=== PATIENT | male | born 1995 | race Caucasian/White ===

== ENCOUNTER 2017-02-12 15:31 | Emergency (ER) | payer BC ==
[2017-02-12 15:54] VITALS: BP 130/71
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
[2017-02-12] MEDS ORDERED: cefTRIAXone VIAL(*) 250 MG VIAL IM ONE (16:50)
[2017-02-12] MEDS ORDERED: Lidocaine 1% MPF* 2 ML VIAL INJ ONE (16:55)
== END 2017-02-12 17:25 | disposition home or self-care (01) ==
LOC: UCCORT 15:31
DX: R36.1 Hematospermia (principal); N45.3 Epididymo-orchitis
CPT/HCPCS: 81003; 87086; 87491; 87591; 96372; 99212; G0463; J0696

== ENCOUNTER 2018-01-31 15:29 | Emergency (ER) | payer BC ==
[2018-01-31 17:33] VITALS: BP 127/63
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
== END 2018-01-31 19:46 | disposition home or self-care (01) ==
LOC: UCCORT 15:29
DX: S89.92XA Unspecified injury of left lower leg, initial encounter (principal); V28.4XXA Motorcycle driver injured in noncollision transport accident in traffic accident, initial encounter; Y92.410 Unspecified street and highway as the place of occurrence of the external cause; Z87.891 Personal history of nicotine dependence
CPT/HCPCS: 72050; 72070; 99213; G0463

== ENCOUNTER 2018-03-31 17:14 | Emergency (ER) | payer BC ==
[2018-03-31 17:25] VITALS: BP 118/71
--- NOTE | 2018-03-31 17:49 | UC ---
Throat Pain/Nasal Segun HPI - HPI Summary HPI Summary: Pt c/o sudden onset ST, bilateral ear pain, nasal congestion, PND and sinus pressure and pain. - History of Current Complaint Hx Obtained From: Patient Onset/Duration: Sudden Onset, Lasting Days - 4, Still Present, Worse Since - onset Severity: Moderate Pain Intensity: 2 Cough: None Associated Signs & Symptoms: Positive: Dysphagia - Epiglottits Risk Factors Epiglottis Risk Factors: Sudden Onset <Angelina John NP - Last Filed: 03/31/18 17:57> <Porfirio Santos - Last Filed: 03/31/18 18:18> - History of Current Complaint Chief Complaint: UCGeneralIllness Stated Complaint: SINUSES Time Seen by Provider: 03/31/18 17:23 - Allergies/Home Medications Allergies/Adverse Reactions: Allergies Allergy/AdvReac Type Severity Reaction Status Date / Time unknown lotion Allergy Rash Uncoded 03/31/18 17:25 PMH/Surg Hx/FS Hx/Imm Hx Previously Healthy: Yes Other History Of: Negative For: HIV, Hepatitis B, Hepatitis C, Anticoagulant Therapy - Surgical History Surgical History: Yes Surgery Procedure, Year, and Place: WISDOM TEETH REMOVED-MD OFFICE. R knee surgery - ARTHROSCOPIC - Family History Known Family History: Positive: Cardiac Disease, Hypertension - Social History Lives: With Family Alcohol Use: Weekly Alcohol Amount: few drinks a week Substance Use Type: None Smoking Status (MU): Former Smoker Type: Smokeless Tobacco Amount Used/How Often: occasional use Have You Smoked in the Last Year: Yes - chewing tobacco <Angelina John NP - Last Filed: 03/31/18 17:57> Review of Systems Constitutional: Fatigue Skin: Negative Eyes: Negative ENT: Sore Throat, Ear Ache Respiratory: Negative Cardiovascular: Negative Gastrointestinal: Negative Genitourinary: Negative Motor: Negative Neurovascular: Negative Musculoskeletal: Negative Neurological: Headache Psychological: Negative Is Patient Immunocompromised?: No All Other Systems Reviewed And Are Negative: Yes <Angelina John NP - Last Filed: 03/31/18 17:57> Physical Exam Triage Information Reviewed: Yes Appearance: Ill-Appearing Vital Signs: Initial Vital Signs Temp 98.1 F 03/31/18 17:21 Pulse 84 03/31/18 17:21 Resp 14 03/31/18 17:21 BP 118/71 03/31/18 17:21 Pulse Ox 98 03/31/18 17:21 Vital Signs Reviewed: Yes Eye Exam: Normal ENT Exam: Other ENT: Positive: Pharyngeal erythema, Tonsillar swelling, Tonsillar exudate Dental Exam: Normal Neck exam: Normal Neck: Positive: Enlarged Nodes @ - bilaterl submandibular Respiratory Exam: Normal Cardiovascular Exam: Normal Musculoskeletal Exam: Normal Neurological Exam: Normal Psychological Exam: Normal Skin Exam: Normal <Angelina John NP Last Filed: 03/31/18 17:57> Vital Signs: Initial Vital Signs Temp 98.1 F 03/31/18 17:21 Pulse 84 03/31/18 17:21 Resp 14 03/31/18 17:21 BP 118/71 03/31/18 17:21 Pulse Ox 98 03/31/18 17:21 <Porfirio Santos Last Filed: 03/31/18 18:18> Diagnostics - Laboratory Diagnostic Studies Completed/Ordered: RApid strep: negative <Angelina John NP Last Filed: 03/31/18 17:57> Throat Pain/Nasal Course/Dx - Differential Dx/Diagnosis Differential Diagnosis/HQI/PQRI: Mononucleosis, Pharyngitis, Tonsillitis Provider Diagnoses: tonsillitis <Angelina John NP Last Filed: 03/31/18 17:57> Discharge - Sign-Out/Discharge Documenting (check all that apply): Discharge/Admit/Transfer - Billing Disposition and Condition Condition: STABLE Disposition: Home <Angelina John NP Last Filed: 03/31/18 17:57> - Billing Disposition and Condition Condition: STABLE Disposition: Home <Porfirio Santos Last Filed: 03/31/18 18:18> - Discharge Plan Condition: Stable Disposition: HOME Prescriptions: Penicillin VK 500 MG TAB(NF) [Penicillin VK 500 mg Tab] 500 mg PO Q8H #30 tab Patient Education Materials: Tonsillitis (ED) Referrals: [facility] [place] [Outside] - As Soon As Possible No Primary Care Phys,NOPCP [Primary Care Provider] - Additional Instructions: Per institutional requirements, I have reviewed the chart, however, I was not consulted specifically or made aware of this patient by the above midlevel provider. I did not personally evaluate, interact with , or disposition this patient.
== END 2018-03-31 18:00 | disposition home or self-care (01) ==
LOC: UCCORT 17:14
DX: J03.90 Acute tonsillitis, unspecified (principal); F17.290 Nicotine dependence, other tobacco product, uncomplicated
CPT/HCPCS: 87651; 99212; G0463

== ENCOUNTER 2019-01-12 08:29 | Day surgery (SDC) | payer BC ==
--- NOTE | 2019-01-06 17:14 | HP ---
PREOPERATIVE HISTORY AND PHYSICAL: DATE OF ADMISSION/SURGERY: 01/12/19 ATTENDING SURGEON: Dr. Megan Hedrick.* (DICTATED BY APRIL ASHLEY) PROCEDURE: Left knee arthroscopy, partial meniscectomy. CHIEF COMPLAINT: Left knee pain. HISTORY OF PRESENT ILLNESS: Duncan is a 23-year-old male who presents to the clinic for left knee pain due to a meniscus tear. He has failed conservative measures and therefore agreed to undergo a left knee arthroscopy, partial meniscectomy with Dr. Hedrick on 01/12/19. PAST MEDICAL HISTORY: Denies current problems. PAST SURGICAL HISTORY: Right knee scope with Dr. Murray. He denies prior complications with anesthesia. MEDICATIONS: No active medications. ALLERGIES: No known drug allergies. FAMILY HISTORY: Positive for diabetes. Denies family history of DVT or PE. SOCIAL HISTORY: He lives with his family. He is an aircraft electrician. He reports occasional alcohol consumption. He denies tobacco use. He is right-hand dominant. REVIEW OF SYSTEMS: A 14-point review of systems was reviewed with the patient. Positive for current complaint, otherwise negative. Denies fever, chills, chest pain, shortness of breath, history of bleeding disorder, history of DVT or PE. PHYSICAL EXAMINATION GENERAL: A 23-year-old, well-developed, well-nourished male, in no acute distress. VITAL SIGNS: Height 72, weight 196, pulse 77, blood pressure 124/70, temperature 97.8, BMI 26.6. HEENT: Normocephalic, atraumatic. PERRLA. Throat clear. NECK: Supple. PULMONARY: Lungs are clear to auscultation bilaterally. No wheezing, rhonchi, or rales. CARDIO: Regular rate and rhythm. S1, S2. No murmurs, gallops, or rubs. No edema. ABDOMEN: Positive bowel sounds. Soft, nontender. NEURO: Alert and oriented x3. Cranial nerves grossly intact. MUSCULOSKELETAL: Left lower extremity: Skin is intact. Tenderness to palpation over the medial joint line. Range of motion 0 to 130. Stable varus and valgus stress. Stable Kassi. Negative posterior drawer. Calf soft, nontender. +2 DP pulse. Sensation intact to light touch distally. DIAGNOSTIC STUDIES: MRI of the left knee revealed posterior horn of the medial meniscus. IMPRESSION: Left knee meniscus tear. PLAN: The patient is scheduled to undergo a left knee arthroscopy, partial meniscectomy with Dr. Hedrick on 01/12/19. He will follow up 10 to 14 days postop for followup and suture removal. Percocet will be used for postop pain management. APRIL ASHLEY [id number]/[facility] #: [id number] [facility] HOSPITALAlyssa
[~2019-01-12 08:29] MED LIST: Buffered Lidocaine 1% SYRIN* 1 ML/SYRINGE INTRADERM ONE; Famotidine IV* 10 MG/ML 2 ML (20 mg) IV ONE; Lactated Ringers 1000 ML Bag* 1,000 ML IV SCH; Midazolam* 1 MG/ML 5 ML VIAL (5 MG) ONE; fentaNYL* 50 MCG/ML 2 ML VIAL (100 MCG VIAL) ONE
[2019-01-12] MEDS ORDERED: Famotidine IV* 10 MG/ML 2 ML (20 mg) ONE (08:38)
[2019-01-12] MEDS ORDERED: ceFAZolin 2 GM in NS PREMIX(*) 2 GM/100 ML BAG IVPB ONE (08:38)
[2019-01-12] MEDS ORDERED: Buffered Lidocaine 1% SYRIN* 1 ML/SYRINGE INTRADERM ONE (08:38)
[2019-01-12] MEDS ORDERED: Ropivacaine* 2 MG/ML 20 ML VIAL (0.2%) ONE (09:55)
[2019-01-12] MEDS ORDERED: Lidocaine 1% MPF wEPI 200,000* 30 ML SDV ONE (09:55)
[2019-01-12] MEDS ORDERED: Ketorolac INJ* 30 MG/ML 1 ML VIAL ONE (11:02)
[2019-01-12] MEDS ORDERED: Ondansetron INJ* 2 MG/ML VIAL ONE (11:02)
[2019-01-12] MEDS ORDERED: Propofol* 10 MG/ML 20 ML BTL ONE (11:02)
[2019-01-12] MEDS ORDERED: Dexamethasone IV* 4 MG/ML 1 ML (4 MG) ONE (11:02)
[2019-01-12] MEDS ORDERED: DiMENhydriNATE IV* 50 MG/ML VIAL IV PUSH PRN (11:04)
[2019-01-12] MEDS ORDERED: oxyCODONE TAB* 5 MG TAB PO PRN (11:04)
[2019-01-12] MEDS ORDERED: Naloxone* 0.4 MG/ML 1 ML VIAL IV PRN (11:04)
[2019-01-12] MEDS ORDERED: Acetaminophen TAB* 325 MG PO PRN (11:04)
[2019-01-12] MEDS ORDERED: oxyCODONE/Acetamin 5/325 MG* TAB ONE (12:02)
[2019-01-12 12:34] VITALS: BP 120/52
--- NOTE | 2019-01-12 14:46 | OP ---
DATE OF OPERATION: 01/12/[address] - [facility] DATE OF : 89 SURGEON: Megan Hedrick MD. 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 PRE-OP DIAGNOSIS: Left knee medial meniscus tear with synovitis. POST-OP DIAGNOSIS: Left knee medial meniscus tear with synovitis. OPERATIVE PROCEDURE: Left knee arthroscopy with partial medial and partial lateral meniscectomy and synovectomy. COMPLICATIONS: None. ESTIMATED BLOOD LOSS: Minimal. INDICATIONS: Duncan Zeng is a 23-year-old male with persistent left knee pain with catching, and medially based pain. He has a medial meniscus tear. After extensive discussion of the risks and benefits to surgery versus nonoperative treatment, he is elected to proceed with surgical treatment. DESCRIPTION OF PROCEDURE: The patient was greeted in the preoperative area by the attending surgeon. Correct extremity was marked and consent was confirmed. The patient was brought back to the operating suite, where he was placed in supine position on the operating table. He underwent general anesthesia and LMA intubation, after which he was appropriately positioned on the bed and a nonsterile tourniquet was placed in the proximal thigh. A left lateral post was placed. The left leg was then prepped and draped in the usual sterile fashion beginning with chlorhexidine soap, scrub, and alcohol wipe and a final prep with ChloraPrep. After appropriate surgical pause indicating side, site, procedure, and administration of antibiotics, the knee was intraarticularly injected with 0.2% ropivacaine. The lateral portal was made in an outside-in fashion and the scope was positioned. There was abundant significant bursa and synovitis that was present. The anteromedial portal was made through needle localization. The shaver was used to debride back the abundant thick bursa that was present and synovitis that was present. Medially and laterally, there was a large medial plica that was debrided back laterally as well. Once an anteromedial lateral synovectomy was complete, attention was directed to the ACL, which was found to be intact and PCL was intact. Patellofemoral joint had grade 0 to 1 changes. The lateral compartment was examined, had some some fraying of the lateral meniscus, but the remainder of the meniscus was intact. The medial compartment was examined. The medial meniscus was intact, but there was partial tear of the undersurface of the meniscus. This was debrided back using jr but to remove the meniscus, we removed the entirety of the entire meniscus. At this point, decision was made that since this was a partial tear, a full meniscectomy was not advised; therefore, due to patients preop discussion and young age, the decision was made to rasp this to see if this will heal as well as debride back the unstable flaps. This was then rasped aggressively using a rasp with good bleeding tissue. Final images were obtained. The wounds were copiously irrigated with sterile saline. The knee was sterilely lavaged. The wounds were then closed with 3-0 nylon in an interrupted fashion. Sterile dressings were applied. The knee was intraarticularly and superficially injected with 0.2% ropivacaine. Sterile dressings were applied. Cryo/Cuff was applied. He was awoken from anesthesia and transferred to the PACU in stable condition. POSTOPERATIVE PLAN: He will be nonweightbearing. He will be discharged on pain medication. DVT prophylaxis was considered, but deferred due to no previous personal or family history. I will see the patient back in 10 to 14 days. [id number]/[facility] #: [id number] JALEEL
== END 2019-01-12 12:56 | disposition home or self-care (01) ==
LOC: OR 08:29
PROVIDERS: ATTEND Orthopaedic Surgery
DX: S83.242A Other tear of medial meniscus, current injury, left knee, initial encounter (principal); S83.282A Other tear of lateral meniscus, current injury, left knee, initial encounter; M65.862 Other synovitis and tenosynovitis, left lower leg; X58.XXXA Exposure to other specified factors, initial encounter; Y92.9 Unspecified place or not applicable
CPT/HCPCS: A9270-GY; J0690; J1100; J1885; J2001; J2250; J2405; J2704; J2795; J3010